=== PATIENT | male | born 1940 | race Caucasian/White ===

== ENCOUNTER → 2023-08-29 15:05 | Outpatient (REF) | payer OTHER, SELFPAY | LOC: HWRAD 15:05 | PROVIDERS: ATTENDING PHYSICIAN Internal Medicine Hematology & Oncology; FAMILY PHYSICIAN Family Medicine | DX: R91.1 Solitary pulmonary nodule (principal); C34.12 Malignant neoplasm of upper lobe, left bronchus or lung; C34.02 Malignant neoplasm of left main bronchus; D70.1 Agranulocytosis secondary to cancer chemotherapy; Z51.11 Encounter for antineoplastic chemotherapy; E86.0 Dehydration | CPT/HCPCS: 71260; Q9967 ==

== ENCOUNTER 2023-09-22 22:43 | Inpatient (IN) | payer OTHER, SELFPAY ==
[2023-09-22] VITALS (11 sets, daily range): BP systolic 87–159; BP diastolic 56–120; BMI 30.2; BMI 29.6
[2023-09-22 17:18] LABS: % Basophils 0.3 % (0-2); % Immature Granulocytes 0.6 % (0-0.5); % Lymphocytes 8.4 % (20.5-51.1); % Monocytes 9.7 % (1.7-9.3); Absolute Immature Granulocytes 0.1 10^3/uL (0-0.05); Absolute Monocytes 1.2 10^3/uL (0.1-0.6); Hematocrit 39.5 % (39.0-52.0); Hemoglobin 14.6 g/dL (13.0-18.0); Mean Corpuscular Hgb 33.3 pg (27.0-31.0); Mean Corpuscular Volume 90.2 fL (80.0-94.0); Mean Platelet Volume 8.7 fL (7.4-10.4); Nucleated Red Blood Cells % 0 % (-); Platelet Count 399 10^3/uL (130-400); Red Blood Cell Count 4.38 10^6/uL (4.70-6.10); Red Cell Dist. Width 12.4 % (11.5-14.5); White Blood Cell Count 12.3 10^3/uL (4.8-10.8)
[2023-09-22 17:32] LABS: ALT (SGPT) 17 U/L (0-50); AST (SGOT) 27 U/L (17-59); Albumin 4.7 g/dl (3.5-5.0); Alkaline Phosphatase 134 U/L (38-126); Blood Urea Nitrogen 13 mg/dl (9-20); Calcium 9.7 mg/dl (8.4-10.2); Carbon Dioxide 22 mmol/L (22-30); Chloride 94 mmol/L (98-107); Estimated Creatinine Clearance 66 ml/min; Glucose 168 mg/dl (70-99); Potassium 4.1 mmol/L (3.5-5.1); Sodium 129 mmol/L (135-145); Total Bilirubin 0.7 mg/dl (0.2-1.3); Total Protein 7.9 g/dl (6.3-8.2); eGFR > 60.00
--- NOTE | 2023-09-22 19:00 | EDRN ---
Report received, introduced myself to patient who has family at bedside complaining of pain, aware waiting for provider who will be in shortly
[2023-09-22] MEDS: ZOFRAN 4 MG IV (19:16)
[2023-09-22] MEDS: DILAUDID 0.25 MG IV (19:16)
--- NOTE | 2023-09-22 20:31 | ED.GENMED ---
History of Present Illness
General
Chief Complaint: Breathing Problem
Source: patient
Exam Limitations: none
Time Seen by Provider: 09/22/23 17:19
Nursing documentation reviewed up to this point in time: agreed with
History of Present Illness
History of Present Illness:
Patient to ED wt complaint of worsening SOB. History of COPD. States 4 days ago his breathing began to worsen. Today he developed right sciatica and states he has not been able to get comfortable between his worsening SOB and sciatica. Brought
to ED by family for eval. Denies fever/chills. Chronic cough, denies changes.
Past History
Past History
ED Past Medical History: Cancer (Lung), HTN, PA and Other (Unbilical hernia)
ED Past Surgical History: Cardiac (Stents x 2) and Other (Hernia surgery, Left lobectomy)
Social History
Tobacco: Smoker
Alcohol: None
Drug: None
Personal:
Living: with family
Review of Systems
Review of Systems
Allergies reviewed?: Yes
All Other Systems: ROS reviewed and negative except as documented in HPI and ROS
Constitutional: Reports fatigue and sleep disturbance
EENT: Reports no symptoms
Respiratory: Reports cough and trouble breathing
Cardiac: Reports no symptoms
ABD/GI: Reports other (poor appetite.)
: Reports no symptoms
Musculoskeletal: Reports back pain (Right sciatica)
Skin: Reports no symptoms
Neurological: Reports weakness
Psychiatric: Reports no symptoms
Phy Exam
General Physical Exam
General Presentation: mild distress
General age: appears stated age
General Skin: warm and dry
General Habitus: normal
General Mental: alert
Cardiovascular Exam
Cardiovascular Exam: tachycardia
Pulmonary Exam
Pulmonary Exam: chest non tender and decreased breath sounds
Oxygen Status: oxygen 2 liters via NC (94%)
Cough: coarse cough
Gastrointestinal Exam
Gastrointestinal Exam: normal bowel sounds, non tender and soft
Musculoskeletal Exam
Musculoskeletal Exam: neuro vasc intact and other (Right low back and buttocks pain, radiating to right thigh. No weakness in extremities)
Skin Exam
Skin Exam: normal color, warm/dry and no rash
Psychiatric Exam
Psychiatric Exam: normal mood/affect
Scores
Heart Failure Risk
Heart Failure Risk Score: Not Applicable
Course
Orders/Labs/Results
Orders:
Orders
09/22/23 17:07
EKG [Electrocardiogram (*1)] Urgent
Reason for Study: Shortness of Breath
EKG- Treatment ONCE
09/22/23 17:12
Complete Blood Count/With Diff Urgent
Comprehensive Metabolic Panel Urgent
09/22/23 17:20
CR Chest - 2 Views Urgent
Comment:
Reason For Exam: cough SOB
09/22/23 19:07
HYDROmorphone [Dilaudid] 0.25 mg IV NOW STA
Ondansetron Injectable [Zofran] 4 mg IV NOW STA
09/22/23 20:45
0.9% Sodium Chloride 500 ml [Nss] 500 ml IV BOLUS
09/22/23 21:25
Dexamethasone Sod Phosphate [Decadron] 10 mg IV NOW STA
09/22/23 22:17
HYDROmorphone [Dilaudid] 0.5 mg IV NOW STA
HYDROmorphone [Dilaudid] 0.5 mg IV Q4HPRN PRN
HYDROmorphone [Dilaudid] 1 mg IV Q4HPRN PRN
Metaxalone [Skelaxin] 800 mg PO NOW STA
09/22/23 22:22
Admit/Transfer Patient As Directed
Co-Sign Provider:
Level of Care: Inpatient admission
Assign to:: Medical/Surgical
Physician / Group: gina martinez
Diagnosis: acute right sided sciatica
Reason for Hospitalization: acute right sided sciatica
Expected length of stay greater than two midnights?: Yes
ELOS- Estimated Length of Stay in days: 3
I certify the patient meets the requirements for IP care: Yes
Code Status As Directed
Resuscitation Status: Full Code
09/23/23 08:00
Metaxalone [Skelaxin] 800 mg PO TID
Abnormal Lab Results
09/22/23
17:12
WBC 12.3 H 10^3/uL
(4.8-10.8)
RBC 4.38 L 10^6/uL
(4.70-6.10)
MCH 33.3 H pg
(27.0-31.0)
Abs Immat Gran (auto) 0.1 H 10^3/uL
(0-0.05)
Absolute Neuts (auto) 10.0 H 10^3/uL
(1.4-6.5)
Absolute Lymphs (auto) 1.0 L 10^3/uL
(1.2-3.4)
Absolute Monos (auto) 1.2 H 10^3/uL
(0.1-0.6)
Immature Gran % 0.6 H %
(0-0.5)
Neutrophils % 81.0 H %
(42.2-75.2)
Lymphocytes % 8.4 L %
(20.5-51.1)
Monocytes % 9.7 H %
(1.7-9.3)
Sodium 129 L mmol/L
(135-145)
Chloride 94 L mmol/L
(98-107)
Glucose 168 H mg/dl
(70-99)
Alkaline Phosphatase 134 H U/L
(38-126)
09/22/23 17:12
09/22/23 17:12
Vital Signs
Initial and Last Documented VS:
Initial Vital Signs
Pulse Resp BP
116 17 132/94
09/22/23 17:04 09/22/23 17:04 09/22/23 17:04
Last Documented Vital Signs
Temp Pulse Resp BP Pulse Ox
97.9 F 117 19 87/56 99
09/22/23 20:45 09/22/23 22:15 09/22/23 22:15 09/22/23 22:01 09/22/23 22:15
*Radiology
Radiology exam reviewed: radiology read reviewed
*Pulse Oximetry
Patient hypoxic: yes
Comment: 88% RA
*Critical Care Note
Total Time (30-74mins, 75-104mins- exclusive of procedures): Not Applicable
Update Note
Update Note:
Patient to ED wtih complaint of difficulty breating, right low back pain with radiation to thigh. Breathing complaint started 4 days ago and continues to worsen. History of COPD. No home 02. Pulse ox 88% RA in dept. Placed o 2LNC, maintaining at
94%. Will admit for exacerbation of COPD. Dilaudid IV given for back/sciatic pain with relief.
ED Attending Note
-
Portions of this chart may have been created with voice recognition software.� Occasional wrong word or��sound alike� substitutions may have occurred due to the inherent limitations of voice recognition software.
Discharge Plan
Departure
Patient Disposition: Admit
Date of Disposition: 09/22/23
Time of Disposition: 21:35
Presentation/result/management discussed w/ accepting MD/DO: Hospitalist
Patient with high blood pressure during this ER visit?: Yes
Condition: Fair
Covid-19: Not Applicable
Discharge Problem:
COPD exacerbation
Interventions
Interventions:
*Risk Screen - Suicide Last Done: 09/22/23 17:09
*General Assessment Last Done: 09/22/23 17:09
*Neglect/Abuse Screening Last Done: 09/22/23 17:09
ED- Fall Risk Assessment Last Done: 09/22/23 19:00
*ED COVID-19 Vaccine History Last Done: 09/22/23 17:09
ED- Cardiac Assessment Last Done: 09/22/23 17:10
ED- Pulmonary Assessment Last Done: 09/22/23 21:00
[2023-09-22] MEDS: NSS 500 IV (20:45)
--- NOTE | 2023-09-22 20:45 | EDRN ---
Patients HR remains still elevated, Tiff [employer] aware, patient to recieved fluids, also patients O2 still around 92-94% on room air, patient placed on 2L NC per [employer] request, will continue to monitor
--- NOTE | 2023-09-22 21:47 | HPS.HSE ---
Family Physician
-
Family Physician: NOT KNOW UNKNOWN - PT DOES
Chief Complaint
-
Right sciatica pain with tachypnea/tachycardia
History of Present Illness
83-year-old male complaining of increased shortness of breath over the past 4 days with underlying COPD. He states approximately 4 weeks ago he started with right-sided sciatica pain radiating to anterior thigh just above the knee. He reports he
was seen in urgent care 4 weeks ago started on 50 mg of prednisone for 7-day course with no improvement. He also reports he has been taking occasional hydrocodone that he had for history of herniated disks with no improvement in pain. He reports
the pain is causing him to breathe faster. He reports a chronic nonproductive cough. He denies fever, chills, headache, chest pain, abdominal pain, nausea, vomiting, diarrhea, urinary symptoms. He has a PET scan scheduled on 09/26/2023 for a 4.3
cm mass in the lingula. He follows with Dr. Yousif at [facility]. He has past medical history of lung cancer status post left lobectomy in 2021 with chemo last dose August 2021, CAD/[place]/cardiac stents times 04/2006,, CVA, HTN, umbilical hernia
repair, active smoker vaping, history of DVT, history of pancreatitis, Hx of syphilis Hx [place], hiatal hernia, gastric ulcer, arthritis, PTSD
Medical History
Past Medical History
Past Medical History: Reports Other
Additional Past Medical History:
lung cancer status post left lobectomy/chemo August 2021
CAD/[place]/cardiac stents x 3 in 2006
CVA
HTN
umbilical hernia repair
active smoker vaping
history of DVT
history of pancreatitis
Hx of syphilis
Hx [place]
hiatal hernia,
gastric ulcer
arthritis
PTSD
Past Surgical History: Reports Other
Additional Past Surgical History:
Left knee replacement 2011
Cardiac stents times 05/2006
Cataract extraction 2004
Lobectomy left lung 2021 secondary to lung cancer
Social History
Tobacco: Vaping
Alcohol: None
Drug: None
Personal:
Living: With Family
Employment: Retired
Family History
Family History: Not pertinent
Allergies / Home Medications
Allergies reflects when Allergies were last updated in [employer]
Home Medications with original date entered in [employer]
Allergy/Medication List:
Allergies
Allergy/AdvReac Type Severity Reaction Status Date / Time
[id number] Reductase AdvReac muscle Verified 04/17/22 12:15
Inhibitor cramps
Home Medications
clopidogrel 75 mg tablet 75 mg PO DAILY Blood clot prevention/tx 05/01/21
metoprolol tartrate 25 mg tablet 25 mg PO BID Blood pressure 05/01/21
ranolazine 500 mg tablet,extended release,12 hr 500 mg PO BID Heart disease/condition 05/01/21
amlodipine 5 mg tablet 5 mg PO DAILY Blood pressure 05/08/21
alirocumab 75 mg/mL subcutaneous pen injector (Praluent Pen) 75 mg SC Q2W 09/22/23
hydrocodone 5 mg-acetaminophen 300 mg tablet 0.5 - 1 tab PO DAILYPRN PRN severe pain 09/22/23
Review of Systems
-
History Source: Patient and Family (Daughter at bedside)
A 12 point ROS was completed and negative except as noted: Yes
Constitutional: Denies Fever, Fatigue or Chills
EENT: Denies Sore Throat or Runny Nose
Respiratory: Reports Cough (Chronic nonproductive) and Trouble Breathing
Cardiac: Denies Chest Pain, Diaphoresis, Palpitations or Syncope
Abdomen/GI: Denies Abdominal Pain, Nausea, Vomiting, Diarrhea, Constipated, Bloody Stools or Black Stools
: Denies Dysuria, Frequency, Flank Pain, Incontinence or Difficulty Voiding
Musculoskeletal: Reports Other (Right-sided sciatica pain with radiation to anterior thigh just above the knee); Denies Joint Pain or Edema
Skin: Denies Itching or Rash
Neurological: Denies Dizzy, Headache or Weakness
Endocrine: Reports No Symptoms
Hematologic/Lymphatic: Reports No Symptoms
Psych: Reports Calm
Physical Exam
Vital Signs
Vital Signs
Temp Pulse Resp BP Pulse Ox
97.9 F 122 14 151/97 93
09/22/23 20:45 09/22/23 20:30 09/22/23 20:00 09/22/23 20:00 09/22/23 20:30
Physical Exam
General: Conversant and Pain; No Fever or Chills
HEENT: NormoCephalic, Anicteric, Moist mucous membranes, PERRLA, Collyer Conjunctivae, No Ptosis, Neck Nontender and Other (Chronic left eye squinting/twitching of face secondary to prior cataract extraction)
Respiratory: Clear; No Wheezes, Rales or Rhonchi
Cardiac: S1/S2, Tachycardia and Other (Right-sided sciatica pain with radiation to anterior thigh just above the knee); No Murmur, Rub, Gallop or Peripheral Edema
Breast: Deferred by me
GI: Soft, Non Tender, Non Distended and Normal Bowel Sounds
Rectal: Deferred by Provider
Genito-urinary: Deferred by me
Musculoskeletal: No Clubbing, No Cyanosis and No Edema
Skin: Warm and Dry; No Rash
Neuro: AO x 3, No Motor Deficits, Nonfocal/grossly intact, Cranial Nerves Intact, No Sensory Deficits and Other (Right-sided sciatica pain with radiation to anterior thigh just above the knee); No Slurred Speech, Facial Droop or Tremors
Psych: Calm
Laboratory Results
-
09/22/23 17:12
09/22/23 17:12
Laboratory Results
Total Bilirubin 0.7 mg/dl (0.2-1.3) 09/22/23 17:12
AST 27 U/L (17-59) 09/22/23 17:12
ALT 17 U/L (0-50) 09/22/23 17:12
Alkaline Phosphatase 134 U/L (38-126) H 09/22/23 17:12
Impression/Plan
-
Impression/plan:
Admit to MedSurg
#Acute right-sided sciatica causing tachycardia/tachypnea from pain
#Hx herniated lumbar disks
Finished recent 50 mg 7-day steroid taper 3 weeks ago with no improvement
Has been taking home Vicodin with no improvement
-MRI lumbar spine
-Dilaudid as needed pain, bowel regimen
-Lidoderm patch
-Skelaxin
-PT/OT/case management eval
#Chronic COPD
No current hypoxia
WBC 12.3 with left shift, afebrile, HR 122
Nicotine use via vaping, prior cigarette smoker
-Vaping use cessation advised
-Patient was given Decadron in ER we will hold further Decadron as do not feel exacerbation of COPD
-DuoNebs as needed
CXR:
1. Severe bilateral upper lobe emphysema
2. Chronic scarring/atelectasis in the lingula surrounding a 4.3 cm chronic cyst or bulla. The cystic lung cancer in the lingula is less likely
3. Severe calcific atherosclerotic plaque in the thoracic aorta
EKG: Sinus tachycardia 109 bpm QTc 441 MS
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
#Hx lung cancer status post LVATS wedge resection lung nodule 2021
Patient has outpatient PET scan scheduled on 09/26/2023
Patient follows with Dr. Nica [facility] [place]
#Hyponatremia
NA 129
#HTN�benign
BP 151/97
#CAD/[place]/cardiac stents x
-Continue metoprolol, Plavix, aspirin, purulent, Ranexa 5 mg twice daily
#HLD
-Continue purulent as outpatient
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
#Hx DVT
#Hx hiatal hernia
#Hx gastric ulcers
#Hx PTSD
#Hx syphilis
#[place] bilaterally
#Arthritis unknown type
DVT prophylaxis
Subcu Lovenox
Full code
[2023-09-22] MEDS: DECADRON 10 MG IV (21:59)
--- NOTE | 2023-09-22 22:16 | EDRN ---
Sarah (daughter): [phone] if anything needed, states if a 'Rupa' calls do not give any information to her
--- NOTE | 2023-09-22 22:53 | W.PN.UPDATE ---
Update Note
Progress Note Update
This is an addendum to the H&P written by Eri Haider on 09/22/2023.� Patient seen examined independently with [employer].
80-year-old male past medical history of left lung cancer status post resection, right-sided sciatica, lumbar disc herniations, CAD, CVA, DVT, hyponatremia presenting here with severe right-sided sciatica and worsening shortness of breath.
Tachycardic on examination likely secondary to pain.
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
Severe right-sided sciatica seems to be the primary problem.� He had recently completed prednisone course 3 weeks ago without improvement.� Check MRI lumbar spine.� Tylenol, lidocaine patch, Skelaxin.� Dilaudid for pain.
Does not clearly appear to be in COPD exacerbation as lungs sound clear and patient is not hypoxic.� Continue DuoNebs.� He is scheduled for PET scan in the near future to evaluate soft tissue mass in the lung.
[2023-09-22] MEDS: SKELAXIN 800 MG PO (22:58)
[2023-09-23] MEDS: DILAUDID 0.5 MG IV ×3 (00:23→21:16)
--- NOTE | 2023-09-23 00:25 | PTCARENOTE ---
Received patient from ED via stretcher. Patient ambulated from stretcher to bed with assistance. Patient complaining of right leg pain radiating to back, PRN dilaudid given as ordered, see MAR. Oriented patient to room and placed call resendiz within
reach.
[2023-09-23] MEDS: TUMS 1 TABLET PO ×2 (06:36→20:22)
[2023-09-23 07:25] LABS: % Basophils 0.1 % (0-2); % Immature Granulocytes 0.7 % (0-0.5); % Lymphocytes 5.9 % (20.5-51.1); % Monocytes 1.3 % (1.7-9.3); Absolute Immature Granulocytes 0.1 10^3/uL (0-0.05); Absolute Lymphocytes 0.5 10^3/uL (1.2-3.4); Absolute Monocytes 0.1 10^3/uL (0.1-0.6); Absolute Neutrophils 8.3 10^3/uL (1.4-6.5); Hematocrit 38.4 % (39.0-52.0); Hemoglobin 13.4 g/dL (13.0-18.0); Mean Corp Hgb Conc. 34.9 g/dL (33.0-37.0); Mean Corpuscular Hgb 33.3 pg (27.0-31.0); Mean Corpuscular Volume 95.5 fL (80.0-94.0); Mean Platelet Volume 9.1 fL (7.4-10.4); Nucleated Red Blood Cells % 0 % (-); Platelet Count 357 10^3/uL (130-400); Red Blood Cell Count 4.02 10^6/uL (4.70-6.10); Red Cell Dist. Width 12.3 % (11.5-14.5); White Blood Cell Count 9.1 10^3/uL (4.8-10.8)
[2023-09-23 07:30] VITALS: BP 150/71
[2023-09-23 08:35] LABS: Blood Urea Nitrogen 17 mg/dl (9-20); Calcium 9.5 mg/dl (8.4-10.2); Carbon Dioxide 22 mmol/L (22-30); Chloride 93 mmol/L (98-107); Estimated Creatinine Clearance 59 ml/min; Glucose 160 mg/dl (70-99); Potassium 4.9 mmol/L (3.5-5.1); Sodium 128 mmol/L (135-145); eGFR > 60.00
[2023-09-23] MEDS: LOPRESSOR 25 MG PO ×2 (08:39→20:22)
[2023-09-23] MEDS: NORVASC 5 MG PO (08:39)
[2023-09-23] MEDS: RANEXA EXTENDED RELEASE 500 MG PO ×2 (08:39→20:21)
[2023-09-23] MEDS: PLAVIX 75 MG PO (08:39)
[2023-09-23 09:29] VITALS: BP 142/93; BP 146/82; PULSE 108; O2SAT 96
[2023-09-23 09:30] VITALS: BP 142/93; BP 146/82; PULSE 108; O2SAT 96
[2023-09-23] MEDS: SKELAXIN 800 MG PO ×3 (10:21→21:16)
--- NOTE | 2023-09-23 10:59 | W.PN.HOSP.TC ---
Today's Communication/Plan
-
mri l spin
urine osm
neph consult
fluid restrict to 1200cc/day
monitor uop
Assessment / Plan
Assessment / Plan
General: No Apparent Distress
HEENT: Normocephalic, Atraumatic and Moist Mucous Membranes. No JVD
Respiratory: CTA B/L, No rales or crackles or wheezes.
Cardiac: Regular Rhythm and S1/S2.
GI: Soft, NT, ND, BS+
Musculoskeletal: No Cyanosis , No Edema
Skin: Dry
Neuro: aao x3
Psych: normal affect
COPD
without evidence of acute bronchospasms, no indication for steroids, continue MDIs. Maintain SpO2 greater than 80 to 92%
Acute right-sided sciatica
seen previously by [facility] spine physicians in the last couple weeks, started on p.o. steroids without improvement. Fortunately without evidence of cauda equina
-MRI of lumbar spine pending at this time.
- - If abnormal or concerning findings then will need to consult spine surgery.
Euvolemic hyponatremia of 128. Nolvia 126 with a calculated serum osm of 271. Known history of lung CA s/p left lobectomy/chemo August 2021. Therefore, cannot rule out SIADH as a potential cause of this hyponatremia. Will preemptively fluid restrict to
1200cc
-Check UOsm
-Consult neph
-Fluid restrict to 1200 cc
Anticipated Discharge: 24 - 48 hours
Subjective/Interval History
-
Date of Service: September 23, 2023
Seen and examined. No new complaints. No acute overnight events.
States that he is feeling better after he received IV Dilaudid pain has completely resolved. Typically will be aspirated once the pain gets to a 7.
States that he has bilateral lower extremity intermittent numbness tingling that has been ongoing since chemotherapy
Denies bowel bladder incontinence
Shortness of breath
Not requiring supplemental oxygen
Objective Data
-
Labs:
Laboratory Results
09/23/23
06:51
WBC 9.1
Hgb 13.4
Hct 38.4 L
Plt Count 357
Sodium 128 L
Potassium 4.9
Chloride 93 L
Carbon Dioxide 22
BUN 17
Creatinine 1.0
Glucose 160 H
Calcium 9.5
Vital Signs:
Vital Signs
Temp Pulse Resp BP Pulse Ox
98.4 F 110 18 150/71 97
09/23/23 07:30 09/23/23 07:30 09/23/23 07:30 09/23/23 07:30 09/23/23 07:30
I&O
09/22/23 09/23/23 09/24/23
06:59 06:59 06:59
Intake Total 480 / 480
Output Total 525 / 525
Balance -45 / -45
Data Reviewed
-
Diagnostic Radiology: Image personally visualized and interpreted and Report Reviewed by me
Labs: Labs Reviewed by me
[2023-09-23] MEDS: DILAUDID 1 MG IV (13:05)
[2023-09-23 15:25] VITALS: BP 129/72
--- NOTE | 2023-09-23 15:33 | W.CON.NEPH ---
Consultation
-
Performing Provider: Jo Nicole
Reason for Consultation: hyponatremia
Medical History
-
Chief Complaint: hyponatremia
History of Present Illness:
Mr. Neal is an 83YOM with PMH of COPD, lung cancer Status post left lobectomy/chemo in August 2021, coronary artery disease (stents in 2006), CVA, hypertension, smoking, DVT, pancreatitis, arthritis, PTSD who presents to the hospital for worsening
SOB.
He is on metoprolol tartrate and amlodipine for his blood pressure.He is on Plavix for his stents.
He had some sciatica type pain, saw urgent care was started on steroids with minimal improvement. He also takes hydrocodone with minimal improvement in pain. He feels that the pain is causing him to breathe faster. He also has a nonproductive cough.
He denies fevers chills nausea vomiting diarrhea or urinary symptoms.
Of note, he does have a pet scan scheduled for September 25 for a mass on his ligula. He follows with Dr. Yousif as his oncologist.
Past Medical History
lung cancer status post left lobectomy/chemo August 2021
CAD/[place]/cardiac stents x 3 in 2006
CVA
HTN
umbilical hernia repair
active smoker vaping
history of DVT
history of pancreatitis
Hx of syphilis
Hx PICAYUNE
hiatal hernia
gastric ulcer
arthritis
PTSD
Past Medical History: Other
Past Surgical History: Other (Left knee replacement 2012 Cardiac stents times 05/2006 Cataract extraction 2004 Lobectomy left lung 2021 secondary to lung cancer)
Social History
Tobacco: Vaping
Alcohol: None
Drug: None
Personal:
Living: With Family
Employment: Retired
Family History
Family History: Not Pertinent
Allergies / Home Medications
Allergy/AdvReac Type Severity Reaction Status Date / Time
Iepxsvv-[id number]-FsO Reductase Allergy muscle Verified 09/22/23 22:46
Inhibitor cramps
�Medication �Instructions �Recorded �Confirmed �Type
clopidogrel 75 mg tablet 75 mg PO DAILY Blood clot 05/01/21 09/22/23 History
prevention/tx
metoprolol tartrate 25 mg tablet 25 mg PO BID Blood pressure 05/01/21 09/22/23 History
ranolazine 500 mg tablet,extended 500 mg PO BID Heart 05/01/21 09/22/23 History
release,12 hr disease/condition
amlodipine 5 mg tablet 5 mg PO DAILY Blood pressure 05/08/21 09/22/23 History
alirocumab 75 mg/mL subcutaneous 75 mg SC Q2W High Cholesterol 09/22/23 09/22/23 History
pen injector (Praluent Pen)
hydrocodone 5 mg-acetaminophen 300 0.5 - 1 tab PO DAILYPRN PRN severe 09/22/23 09/22/23 History
mg tablet pain
Review of Systems
-
History Source: Patient
All other systems: Negative unless noted
Respiratory: Cough and Trouble Breathing
Musculoskeletal: Muscle Pain
Physical Exam
Vital Signs
Vital Signs
Temp Pulse Resp BP Pulse Ox
98.4 F 110 18 150/71 97
09/23/23 07:30 09/23/23 07:30 09/23/23 07:30 09/23/23 07:30 09/23/23 07:30
Lab Results
WBC 9.1 10^3/uL (4.8-10.8) 09/23/23 06:51
RBC 4.02 10^6/uL (4.70-6.10) L 09/23/23 06:51
Hgb 13.4 g/dL (13.0-18.0) 09/23/23 06:51
Hct 38.4 % (39.0-52.0) L 09/23/23 06:51
Plt Count 357 10^3/uL (130-400) 09/23/23 06:51
Sodium 128 mmol/L (135-145) L 09/23/23 06:51
Potassium 4.9 mmol/L (3.5-5.1) 09/23/23 06:51
Chloride 93 mmol/L (98-107) L 09/23/23 06:51
Carbon Dioxide 22 mmol/L (22-30) 09/23/23 06:51
BUN 17 mg/dl (9-20) 09/23/23 06:51
Creatinine 1.0 mg/dL (0.7-1.3) 09/23/23 06:51
eGFR > 60.00 09/23/23 06:51
Glucose 160 mg/dl (70-99) H 09/23/23 06:51
Calcium 9.5 mg/dl (8.4-10.2) 09/23/23 06:51
Albumin 4.7 g/dl (3.5-5.0) 09/22/23 17:12
Physical Exam
General: AOx3, No Distress and Nontoxic
HEENT: PERRL, EOMI, Anicteric, Conjunctivae Clear, Ear/Nose Intact, Oropharynx Clear/Moist, Dentition Intact, Facial Symmetry, Neck Supple, Trachea Midline, No JVD, No Thyromegaly and Other (PICAYUNE)
Respiratory: Wheezes, Normal Excursion and Nonlabored Respirations
Cardiac: S1/S2, Regular Rate/Rhythm and No Edema
Breast: N/A
Abdomen: Soft, Nontender, Nondistended, Normal Bowel Sounds and No Hepatosplenomegaly
Rectal: Deferred by Provider
Genito-urinary: No Costovertebral Tender
Musculoskeletal: No Clubbing, No Cyanosis and No Edema
Skin: No Rash, Warm, Dry, No Clubbing, No Cyanosis, Normal Turgor and No Bruising
Neuro: Nonfocal/Grossly Intact
Hematologic/Lymphatic: No Cervical Lymphadenopathy
Psych: Mood/afflect pleasant, Insight/judgement good and Appropriate
Data Reviewed
-
Radiology: Image Personally Visualized and interpreted (plaque noted in the thoracic aorta. scarring noted in the lungs. bilateral emphysema)
MRI: Report Reviewed by me
Labs: Labs Reviewed by me, Discussed with Physician and Discussed with Patient
Old Records: Reviewed
Assessment/Plan
-
Assessment/Plan:
hyponatremia
COPD
Sciatica
Lingula mass
lung cancer hx s/p LVATS resection
HTN
CAD
Plan:
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
- Uosm 420, urine sodium 126 --> consistent with SIADH
- check TSH and cortisol
- samsca 7.5mg today
--- NOTE | 2023-09-23 17:11 | CM ---
Chart reviewed and patient visited at bedside. He lives in a one floor home with 4 entry steps, reporting (I) amb and adl's prior to back pain/sciatica. He has a walker and a shower chair at home since his back pain started.
Td has 2 sisters who recently moved in with him and help with cooking and laundry.
CM will follow for discharge planning needs if identified with need for in-home services or SNF (less likely).
PCP: Glory Baires
Pharmacy: [facility] on [facility] in [place]
[2023-09-23 17:19] LABS: TSH 1.34 uIU/ml (0.47-4.68)
[2023-09-23] MEDS: SAMSCA 7.5 MG PO (17:31)
[2023-09-23] MEDS: LOVENOX 40 MG SC (17:31)
[2023-09-23 23:49] VITALS: BP 110/56
[2023-09-24 07:03] LABS: % Basophils 0.1 % (0-2); % Immature Granulocytes 0.7 % (0-0.5); % Lymphocytes 5.9 % (20.5-51.1); % Monocytes 7.8 % (1.7-9.3); % Neutrophils 85.5 % (42.2-75.2); Absolute Immature Granulocytes 0.1 10^3/uL (0-0.05); Absolute Lymphocytes 0.9 10^3/uL (1.2-3.4); Absolute Monocytes 1.2 10^3/uL (0.1-0.6); Absolute Neutrophils 12.8 10^3/uL (1.4-6.5); Hemoglobin 11.5 g/dL (13.0-18.0); Mean Corp Hgb Conc. 34.8 g/dL (33.0-37.0); Mean Corpuscular Hgb 33.1 pg (27.0-31.0); Mean Corpuscular Volume 95.1 fL (80.0-94.0); Nucleated Red Blood Cells % 0 % (-); Platelet Count 303 10^3/uL (130-400); Red Blood Cell Count 3.47 10^6/uL (4.70-6.10); Red Cell Dist. Width 12.5 % (11.5-14.5)
[2023-09-24 07:34] LABS: Blood Urea Nitrogen 27 mg/dl (9-20); Calcium 9.5 mg/dl (8.4-10.2); Carbon Dioxide 28 mmol/L (22-30); Chloride 96 mmol/L (98-107); Estimated Creatinine Clearance 53 ml/min; Glucose 126 mg/dl (70-99); Potassium 5.2 mmol/L (3.5-5.1); Sodium 130 mmol/L (135-145); eGFR > 60.00
[2023-09-24 07:40] VITALS: BP 113/56
[2023-09-24 08:04] LABS: Cortisol, Random 1.3 ug/dl
[2023-09-24] MEDS: RANEXA EXTENDED RELEASE 500 MG PO ×2 (08:25→21:49)
[2023-09-24] MEDS: SKELAXIN 800 MG PO ×3 (08:25→21:49)
[2023-09-24] MEDS: LOPRESSOR 25 MG PO (08:25)
[2023-09-24] MEDS: PLAVIX 75 MG PO (08:26)
[2023-09-24] MEDS: NORVASC 5 MG PO (08:26)
--- NOTE | 2023-09-24 10:15 | CON.ORTHO ---
Consultation
-
Date/Time Consultation Requested: 09/24/2023; time unknown
Date/Time Consultation Performed: 09/24/2023; 1000
Requesting Provider: Domenico Lopez
Performing Provider: Rika Gomez PA-C for Dr. Krzysztof Aquino
Reason for Consultation: Low back pain; lumbar radiculopathy
Consultation - Orthopedics
History
Mr. Neal is an 83 year old male with PMH of lung cancer status post resection, lumbar disc herniations, CAD, CVA, DVT, hyponatremia. He is seen today for evaluation of low back pain and right sided lumbar radiculopathy. He reports symptoms
ongoing for the last month or so, and denies any injury or inciting event. He was seen initially at urgent care where he reports he was prescribed a steroid. He then presented to [facility] and an MRI of his lumbar spine was ordered. He
reports chronic low back pain, and has utilized [place] prn for symptom management. He endorses pain that radiates down his anterior thigh and stops at his knee. He endorses baseline neuropathy following chemotherapy, but denies any new
numbness/tingling. He denies bowel or bladder incontinence or saddle anesthesia.
Allergies / Home Medications
Allergy/AdvReac Type Severity Reaction Status Date / Time
Upaplxu-TLN-HcM Reductase Allergy muscle Verified 09/22/23 22:46
Inhibitor cramps
�Medication �Instructions �Recorded
clopidogrel 75 mg tablet 75 mg PO DAILY Blood clot 05/01/21
prevention/tx
metoprolol tartrate 25 mg tablet 25 mg PO BID Blood pressure 05/01/21
ranolazine 500 mg tablet,extended 500 mg PO BID Heart 05/01/21
release,12 hr disease/condition
amlodipine 5 mg tablet 5 mg PO DAILY Blood pressure 05/08/21
alirocumab 75 mg/mL subcutaneous 75 mg SC Q2W High Cholesterol 09/22/23
pen injector (Praluent Pen)
hydrocodone 5 mg-acetaminophen 300 0.5 - 1 tab PO DAILYPRN PRN severe 09/22/23
mg tablet pain
Vital Signs / Lab Results
Temp Pulse Resp BP Pulse Ox
97.7 F 77 14 113/56 98
09/24/23 07:40 09/24/23 08:25 09/24/23 07:40 09/24/23 08:25 09/24/23 08:20
09/24/23 06:51
09/24/23 06:51
MRI Lumbar Spine Findings:
At T12-L1, mild degenerative disc disease. On sagittal images, mild broad-based posterior disc bulge minimally compressing the anterior thecal sac.
At L1-2, mild posterior disc bulge, slightly asymmetric, greater in the left foraminal region. No significant overall central canal stenosis or lateral recess stenosis. Mild left foraminal narrowing with no evidence for compression of the exiting
nerve root. Minimal right foraminal narrowing.
At L2-3, mild degenerative disc disease including anterior spondylosis. Mild broad-based posterior disc bulge, asymmetric, slightly greater in the left subarticular and foraminal region. Mild bilateral facet degenerative change. Compression of the
thecal sac, greatest left anteriorly. Mild left lateral recess stenosis. No significant right lateral recess stenosis. No significant overall central canal stenosis. Mild left foraminal narrowing with no evidence for compression of the exiting nerve
root. Minimal right foraminal narrowing.
At L3-4, moderate degenerative disc disease, slightly greater toward the right side of the disc space. Prominent bilateral lateral spondylosis. Focal right lateral degenerative marrow endplate signal change, Modic type I. Mild to moderate
broad-based posterior disc bulge, greater in the foraminal regions bilaterally. Mild to moderate bilateral facet degenerative change. Trefoil compression of the thecal sac results in mild bilateral lateral recess stenosis. No significant overall
central canal stenosis. The left neural foramen is mildly to moderately narrowed and slightly compresses the anterior and inferior margin of the exiting nerve root. The right foramen is moderately to severely narrowed from disc bulge and facet
degenerative change, with significant compression of the exiting right L3 nerve root.
At L4-5, moderate degenerative disc disease including mild degenerative marrow endplate signal change, Modic type I. Bilateral lateral spondylosis and moderate anterior spondylosis. Mild broad-based posterior disc bulge. Slight extension of disc
material superior to the disc space in the central through right subarticular region. Mild bilateral facet degenerative change. There is slight compression of the thecal sac, resulting in mild bilateral recess stenosis. No significant overall
central canal stenosis. The left foramen is mildly to moderately narrowed, but probably not significantly compressing the exiting nerve root. The right foramen appears mildly to moderately narrowed and may slightly impinge upon the exiting nerve
root.
At L5-S1, minimal degenerative disc disease. Minimal posterior disc bulge with mild to moderate bilateral facet degenerative change. There is no significant compression of the thecal sac or the S1 nerve root origins. There is no significant overall
central canal stenosis. The left foramen is mildly to moderately narrowed, but likely does not compress the exiting nerve root. The right foramen is mildly narrowed and does not appear to compress the exiting nerve root.
There is diffuse atherosclerotic disease of the abdominal aorta. 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 The abdominal aorta has maximum dimensions of 2.9 cm transverse by 2.5 cm AP. There is slight dilation of the
visualized proximal right common iliac artery, which has short axis diameter 1.7 cm.
Note is made of increased STIR signal within the right posterior paraspinal soft tissues, extending inferiorly from the L3-4 and L4-5 levels, and also demonstrating postcontrast enhancement. Findings would suggest denervation edema and enhancement
from impingement on nerve supplying the right paraspinal musculature.
Physical Exam:
General: pleasant male in NAD, AAOx3
Head: atraumatic, normocephalic
Eyes: sclera anicteric
Ears: normal hearing
Heart: no lower extremity edema
Lungs: no audible wheezing
Lumbar spine: No erythema, ecchymosis or lesions. No tenderness to palpation along the lumbar spinous processes, paraspinal muscles, SI joints or sciatic notch. Lumber spine ROM limited secondary to stiffness and discomfort. Maintained (5/5)
strength throughout. Sensation intact to light touch throughout. Capillary refill <2 seconds.
Assessment / Plan
Degenerative disc disease with foraminal narrowing and L3 nerve root compression.
--Td's symptoms are consistent with L3-4 lumbar radiculopathy. Thankfully, he is neurovascular intact throughout. Lumbar spine MRI reviewed, and no surgical intervention is warranted at this time. Would recommend IR consult for injection. Order
placed. Continue with pain control per primary. Would recommend PT/OT while patient admitted. Please reach out with any additional orthopedic questions or concerns.
--- NOTE | 2023-09-24 11:06 | W.PN.NEPH.PH ---
Today's Communication / Plan
-
samsca
Assessment/Plan
-
Assessment/Plan:
hyponatremia
COPD
Sciatica
Lingula mass
lung cancer hx s/p LVATS resection
HTN
CAD
Plan:
samsca again
cosyntropin stim test
follow BMP
watch K
-
-
Date of Service: September 24, 2023
CC / HPI / ROS
-
Chief Complaint:
hyponatremia
History of Present Illness:
Na up to 130 with samsca
K up to 5.2
BP stable
cortisol low 1.3
pain controlled
Review of Systems:
no CP/SOB
Labs
-
Labs:
WBC 15.0 10^3/uL (4.8-10.8) H 09/24/23 06:51
RBC 3.47 10^6/uL (4.70-6.10) L 09/24/23 06:51
Hgb 11.5 g/dL (13.0-18.0) L 09/24/23 06:51
Hct 33.0 % (39.0-52.0) L 09/24/23 06:51
Plt Count 303 10^3/uL (130-400) 09/24/23 06:51
Sodium 130 mmol/L (135-145) L 09/24/23 06:51
Potassium 5.2 mmol/L (3.5-5.1) H 09/24/23 06:51
Chloride 96 mmol/L (98-107) L 09/24/23 06:51
Carbon Dioxide 28 mmol/L (22-30) 09/24/23 06:51
BUN 27 mg/dl (9-20) H 09/24/23 06:51
Creatinine 1.1 mg/dL (0.7-1.3) 09/24/23 06:51
eGFR > 60.00 09/24/23 06:51
Glucose 126 mg/dl (70-99) H 09/24/23 06:51
Calcium 9.5 mg/dl (8.4-10.2) 09/24/23 06:51
Albumin 4.7 g/dl (3.5-5.0) 09/22/23 17:12
Physical Exam
-
Vital Signs:
Vital Signs
Temp Pulse Resp BP Pulse Ox
97.7 F 77 14 113/56 98
09/24/23 07:40 09/24/23 08:25 09/24/23 07:40 09/24/23 08:25 09/24/23 08:20
Cardiovascular:: Regular rate and rhythm
Respiratory:: Bilateral: CTA
Lung Excursion:: Normal
Abdomen:: Nontender and Soft
Bowel Sounds:: Normal
Extremity Edema:: None: Bilateral:
[2023-09-24] MEDS: SAMSCA 7.5 MG PO (11:59)
[2023-09-24] MEDS: DILAUDID 0.5 MG IV ×2 (12:06→23:58)
[2023-09-24 14:08] LABS: INR 1.08
[2023-09-24 14:39] VITALS: BP 132/75
--- NOTE | 2023-09-24 14:40 | W.PN.HOSP.TC ---
Today's Communication/Plan
-
follow up bmp at 1800, if K >5.5 then start lokelma and get ekg as he may need temporzing agents
follow up on ortho - spine recs
Assessment / Plan
Assessment / Plan
General: No Apparent Distress
HEENT: Normocephalic, Atraumatic and Moist Mucous Membranes. No JVD
Respiratory: CTA B/L, No rales or crackles or wheezes.
Cardiac: Regular Rhythm and S1/S2.
GI: Soft, NT, ND, BS+
Musculoskeletal: No Cyanosis , No Edema
Skin: Dry
Neuro: aao x3
Psych: normal affect
COPD
without evidence of acute bronchospasms, no indication for steroids, continue MDIs. Maintain SpO2 greater than 80 to 92%
Acute right-sided sciatica
seen previously by [facility] spine physicians in the last couple weeks, started on p.o. steroids without improvement. Fortunately without evidence of cauda equina
-MRI showing foraminal narrowing at l3-l4
- - Ispine surgery consulted
Euvolemic hyponatremia of 128. Nolvia 126 with a calculated serum osm of 271. Known history of lung CA s/p left lobectomy/chemo August 2021. Therefore, cannot rule out SIADH as a potential cause of this hyponatremia. Will preemptively fluid restrict to
1200cc
-Consult neph
- - Ordered tolvapatn for 09/22 and 09/23
- - low AM [place], neph ordered stim test
-Fluid restrict to 1200 cc
HyperK
- could be related to the tolvaptan
- - start low k diet
- - repeat bmp at 1800
- - consider lokelma
Anticipated Discharge: 24 - 48 hours
Subjective/Interval History
-
Date of Service: September 24, 2023
states he said that he is again in pain from the sciatica. Pain meds take it away completed. Up to a 7 when pain meds wear off. At home was taking 1tab of hydroxycodone/acetminophen which helps with the pain for about 4hours but make him light
headed.
Additionally states that he was hallucinating yesterday/last night. 2 people the walking on the roof and staring at him eventually by the time he woke up this morning.
Spoke with his daughter still hallucinating a little a bit. She would like him to make his PET/CT appointment on friday.
Objective Data
-
Labs:
Laboratory Results
09/24/23 09/24/23
06:51 13:35
WBC 15.0 H
Hgb 11.5 L
Hct 33.0 L
Plt Count 303
PT 14.0
INR 1.08
Sodium 130 L
Potassium 5.2 H
Chloride 96 L
Carbon Dioxide 28
BUN 27 H
Creatinine 1.1
Glucose 126 H
Calcium 9.5
Vital Signs:
Vital Signs
Temp Pulse Resp BP Pulse Ox
97.3 F 74 16 132/75 95
09/24/23 14:39 09/24/23 14:39 09/24/23 14:39 09/24/23 14:39 09/24/23 14:39
I&O
09/23/23 09/24/23 09/25/23
06:59 06:59 06:59
Intake Total 480 / 480 960 / 960
Output Total 525 / 525
Balance -45 / -45 960 / 960
--- NOTE | 2023-09-24 16:00 | PTCARENOTE ---
PCT Rudy found pt. vaping, pt. said it is his 'security blanket' and wink at PCT. Pt. educated on hospital policy regarding vaping in the building. Nursing stock preparation supervisor made aware and security called. Security came and took pt. vape, it is now locked
in the security office until pt. is discharged.
[2023-09-24] MEDS: LOVENOX 40 MG SC (16:26)
[2023-09-24 16:35] LABS: Osmolality Urine 543 mOsm/kg (300-900)
--- NOTE | 2023-09-24 17:46 | CM ---
CM met with Td today to discuss concerns about a PET scan that he has had scheduled for Friday. Support provided and advised Td that I would look into the situation to determine if there can be a resolution.
STEPHANIE advised that PET scan area is in the [place] and does not have RN onsite, so it is a safety issue for a hospitalized patient to be sent to PET scan. STEPHANIE returned to room to discuss this with Td. He is very scared that his cancer is
getting worse, advised he had hallucinations in the past when his cancer was getting worse, and has had hallucinations again at night while in the hospital.
Support provided.
TT to attending to raise awareness of test scheduled for Friday, and if medically stable for discharge on 09/25/2023 would be able to go to PET scan.
Plan: Discharge to home with no anticipated needs.
[2023-09-24 19:27] LABS: Blood Urea Nitrogen 34 mg/dl (9-20); Calcium 9.5 mg/dl (8.4-10.2); Carbon Dioxide 28 mmol/L (22-30); Chloride 93 mmol/L (98-107); Estimated Creatinine Clearance 45 ml/min; Glucose 123 mg/dl (70-99); Potassium 4.4 mmol/L (3.5-5.1); Sodium 131 mmol/L (135-145); eGFR 55.19
[2023-09-24 21:45] VITALS: BP 105/54
[2023-09-24] MEDS: LOPRESSOR PO (22:00)
[2023-09-24] MEDS: LOPRESSOR 12.5 MG PO (22:07)
[2023-09-24 23:22] VITALS: BP 134/71
[2023-09-25] MEDS: DILAUDID 0.5 MG IV ×4 (06:27→23:42)
[2023-09-25 07:17] VITALS: BP 129/70
[2023-09-25] MEDS: PLAVIX 75 MG PO (07:46)
[2023-09-25] MEDS: RANEXA EXTENDED RELEASE 500 MG PO ×2 (07:46→21:52)
[2023-09-25] MEDS: NORVASC 5 MG PO (07:46)
[2023-09-25] MEDS: SKELAXIN 800 MG PO ×3 (07:46→21:52)
[2023-09-25] MEDS: LOPRESSOR PO (07:55)
[2023-09-25 08:14] LABS: % Basophils 0.1 % (0-2); % Immature Granulocytes 0.7 % (0-0.5); % Lymphocytes 14.4 % (20.5-51.1); % Monocytes 9.3 % (1.7-9.3); % Neutrophils 75.5 % (42.2-75.2); Absolute Immature Granulocytes 0.1 10^3/uL (0-0.05); Absolute Lymphocytes 2.1 10^3/uL (1.2-3.4); Absolute Monocytes 1.3 10^3/uL (0.1-0.6); Absolute Neutrophils 10.8 10^3/uL (1.4-6.5); Hematocrit 37.8 % (39.0-52.0); Hemoglobin 12.7 g/dL (13.0-18.0); Mean Corp Hgb Conc. 33.6 g/dL (33.0-37.0); Mean Corpuscular Hgb 32.4 pg (27.0-31.0); Mean Corpuscular Volume 96.4 fL (80.0-94.0); Mean Platelet Volume 9.1 fL (7.4-10.4); Nucleated Red Blood Cells % 0 % (-); Platelet Count 372 10^3/uL (130-400); Red Blood Cell Count 3.92 10^6/uL (4.70-6.10); Red Cell Dist. Width 12.8 % (11.5-14.5); White Blood Cell Count 14.3 10^3/uL (4.8-10.8)
[2023-09-25 08:27] LABS: Blood Urea Nitrogen 28 mg/dl (9-20); Calcium 9.5 mg/dl (8.4-10.2); Carbon Dioxide 28 mmol/L (22-30); Chloride 95 mmol/L (98-107); Estimated Creatinine Clearance 49 ml/min; Glucose 144 mg/dl (70-99); Potassium 3.7 mmol/L (3.5-5.1); Sodium 135 mmol/L (135-145); eGFR > 60.00
[2023-09-25] MEDS: CORTROSYN 0.25 MG IV (08:34)
[2023-09-25] MEDS: NSS (PRESERVATIVE FREE) 1 ML IV (08:35)
[2023-09-25 08:57] LABS: ACTH Stim Cortisol 0 Min 1.6 ug/dl
[2023-09-25 10:07] LABS: ACTH Stim Cortisol 30 Min 11.5 ug/dl
[2023-09-25 10:34] LABS: ACTH Stim Cortisol 60 Min 14.3 ug/dl
--- NOTE | 2023-09-25 12:07 | W.PN.NEPH.PH ---
Today's Communication / Plan
-
maintain FR
follow bmp while inpatient
Assessment/Plan
-
Assessment/Plan:
hyponatremia
COPD
Sciatica
Lingula mass
lung cancer hx s/p LVATS resection
HTN
CAD
Plan:
samsca was given again last pm with sodium rise to 135
cosyntropin stim test ordered for low cortisol although hemodynamically stable
stim test indicates some adreanl insufficiency maybe related to steroid administration last week, will hold off on hydrocortisone given stable hemodynamics
follow BMP
watch K
maintain FR
may require low dose lasix at dc for SIADH (20mg qod)
-
-
Date of Service: September 25, 2023
CC / HPI / ROS
-
Chief Complaint:
hyponatremia
History of Present Illness:
Na up to 135 with samsca times two
K at 3.7
BP stable
cortisol low 1.3
pain controlled
Review of Systems:
no CP/SOB
Labs
-
Labs:
WBC 14.3 10^3/uL (4.8-10.8) H 09/25/23 08:07
RBC 3.92 10^6/uL (4.70-6.10) L 09/25/23 08:07
Hgb 12.7 g/dL (13.0-18.0) L 09/25/23 08:07
Hct 37.8 % (39.0-52.0) L 09/25/23 08:07
Plt Count 372 10^3/uL (130-400) D 09/25/23 08:07
Sodium 135 mmol/L (135-145) 09/25/23 08:07
Potassium 3.7 mmol/L (3.5-5.1) 09/25/23 08:07
Chloride 95 mmol/L (98-107) L 09/25/23 08:07
Carbon Dioxide 28 mmol/L (22-30) 09/25/23 08:07
BUN 28 mg/dl (9-20) H 09/25/23 08:07
Creatinine 1.2 mg/dL (0.7-1.3) 09/25/23 08:07
eGFR > 60.00 09/25/23 08:07
Glucose 144 mg/dl (70-99) H 09/25/23 08:07
Calcium 9.5 mg/dl (8.4-10.2) 09/25/23 08:07
Albumin 4.7 g/dl (3.5-5.0) 09/22/23 17:12
Physical Exam
-
Vital Signs:
Vital Signs
Temp Pulse Resp BP Pulse Ox
97.7 F 90 18 140/80 95
09/25/23 07:17 09/25/23 07:46 09/25/23 07:17 09/25/23 07:46 09/25/23 10:37
Cardiovascular:: Regular rate and rhythm
Respiratory:: Bilateral: Coarse (decreased breath sounds bilaterally)
Lung Excursion:: Normal
Abdomen:: Nontender and Soft
Bowel Sounds:: Normal
Extremity Edema:: None: Bilateral:
Alaniz Catheter: No
--- NOTE | 2023-09-25 14:53 | W.PN.HOSP.TC ---
Today's Communication/Plan
-
PET/CT tomorrow on 09/25
IR consult for transforaminal radicular injection at L3-L4
Assessment / Plan
Assessment / Plan
General: No Apparent Distress
HEENT: Normocephalic, Atraumatic and Moist Mucous Membranes. No JVD
Respiratory: CTA B/L, No rales or crackles or wheezes.
Cardiac: Regular Rhythm and S1/S2.
GI: Soft, NT, ND, BS+
Musculoskeletal: No Cyanosis , No Edema
Skin: Dry
Neuro: aao x3
Psych: normal affect
COPD
without evidence of acute bronchospasms, no indication for steroids, continue MDIs. Maintain SpO2 greater than 80 to 92%
Acute right-sided sciatica
seen previously by [facility] spine physicians in the last couple weeks, started on p.o. steroids without improvement. Fortunately without evidence of cauda equina
-MRI showing foraminal narrowing at l3-l4
- -Spine surgery evaluated no acute surgical interventions indicated
- -Spine surgery to consult IR for L3-L4 transforaminal injection
Euvolemic hyponatremia of 128. Nolvia 126 with a calculated serum osm of 271. Known history of lung CA s/p left lobectomy/chemo August 2021. Therefore, cannot rule out SIADH as a potential cause of this hyponatremia. Will preemptively fluid restrict to
1200cc
-Consult neph
- - Ordered tolvapatn for 09/22 and 09/23
- - low AM [place], stim test with mild improvement likely related to recent steroid use. I agree with nephrology no indication for hydrocortisone at this time.
-Will discuss with nephrology prior to discharge needs for every other day Lasix 20 mg
HyperK
- could be related to the tolvaptan
- - start low k diet
- - repeat bmp at 1800
- - consider lokelma
Pulmonary mass
Discussed with risk will be taken for PET/CT tomorrow
Anticipated Discharge: Within 24 hours
Subjective/Interval History
-
Date of Service: September 25, 2023
Seen and examined. No new complaints. No acute overnight events per
Objective Data
-
Labs:
Laboratory Results
09/25/23
08:07
WBC 14.3 H
Hgb 12.7 L
Hct 37.8 L
Plt Count 372 D
Sodium 135
Potassium 3.7
Chloride 95 L
Carbon Dioxide 28
BUN 28 H
Creatinine 1.2
Glucose 144 H
Calcium 9.5
Vital Signs:
Vital Signs
Temp Pulse Resp BP Pulse Ox
97.7 F 90 18 140/80 95
09/25/23 07:17 09/25/23 07:46 09/25/23 07:17 09/25/23 07:46 09/25/23 10:37
I&O
09/24/23 09/25/23 09/26/23
06:59 06:59 06:59
Intake Total 960 / 960 720 / 720
Balance 960 / 960 720 / 720
[2023-09-25 15:49] VITALS: BP 119/67
[2023-09-25] MEDS: LOVENOX 40 MG SC (16:58)
[2023-09-25 21:01] VITALS: BP 133/69
[2023-09-25] MEDS: LOPRESSOR 25 MG PO (21:52)
[2023-09-25 23:49] VITALS: BP 108/66
[2023-09-26] MEDS: DILAUDID 0.5 MG IV ×3 (06:18→16:41)
[2023-09-26 08:00] VITALS: BP 115/55
[2023-09-26] MEDS: LOPRESSOR 25 MG PO (08:03)
[2023-09-26] MEDS: SKELAXIN 800 MG PO ×2 (08:03→15:40)
[2023-09-26] MEDS: PLAVIX 75 MG PO (08:04)
[2023-09-26] MEDS: RANEXA EXTENDED RELEASE 500 MG PO (08:04)
[2023-09-26] MEDS: NORVASC 5 MG PO (08:04)
[2023-09-26 08:05] LABS: Blood Urea Nitrogen 22 mg/dl (9-20); Calcium 8.9 mg/dl (8.4-10.2); Carbon Dioxide 32 mmol/L (22-30); Chloride 95 mmol/L (98-107); Estimated Creatinine Clearance 53 ml/min; Glucose 98 mg/dl (70-99); Potassium 3.7 mmol/L (3.5-5.1); Sodium 133 mmol/L (135-145); eGFR > 60.00
--- NOTE | 2023-09-26 09:26 | W.PN.NEPH.PH ---
Today's Communication / Plan
-
Add salt tablets
Assessment/Plan
-
Assessment/Plan:
hyponatremia
COPD
Sciatica
Lingula mass
lung cancer hx s/p LVATS resection
HTN
CAD
Plan:
samsca was given again on 09/23with sodium rise to 135 now at 133
cosyntropin stim test ordered for low cortisol although hemodynamically stable
stim test indicates some adrenal insufficiency maybe related to steroid administration last week, will hold off on hydrocortisone given stable hemodynamics
follow BMP
maintain FR
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
-
-
Date of Service: September 26, 2023
CC / HPI / ROS
-
Chief Complaint:
hyponatremia
History of Present Illness:
Na up to 133 with samsca times two last given on 09/24/2023
BP stable
cortisol low 1.3
pain controlled
Review of Systems:
no CP/SOB
Labs
-
Labs:
WBC 14.3 10^3/uL (4.8-10.8) H 09/25/23 08:07
RBC 3.92 10^6/uL (4.70-6.10) L 09/25/23 08:07
Hgb 12.7 g/dL (13.0-18.0) L 09/25/23 08:07
Hct 37.8 % (39.0-52.0) L 09/25/23 08:07
Plt Count 372 10^3/uL (130-400) D 09/25/23 08:07
Sodium 133 mmol/L (135-145) L 09/26/23 07:04
Potassium 3.7 mmol/L (3.5-5.1) 09/26/23 07:04
Chloride 95 mmol/L (98-107) L 09/26/23 07:04
Carbon Dioxide 32 mmol/L (22-30) H 09/26/23 07:04
BUN 22 mg/dl (9-20) H 09/26/23 07:04
Creatinine 1.1 mg/dL (0.7-1.3) 09/26/23 07:04
eGFR > 60.00 09/26/23 07:04
Glucose 98 mg/dl (70-99) 09/26/23 07:04
Calcium 8.9 mg/dl (8.4-10.2) 09/26/23 07:04
Albumin 4.7 g/dl (3.5-5.0) 09/22/23 17:12
Physical Exam
-
Vital Signs:
Vital Signs
Temp Pulse Resp BP Pulse Ox
98.2 F 70 18 120/62 97
09/26/23 08:00 09/26/23 08:04 09/26/23 08:00 09/26/23 08:04 09/26/23 08:00
Cardiovascular:: Regular rate and rhythm
Respiratory:: Bilateral: Coarse (decreased breath sounds bilaterally)
Lung Excursion:: Normal
Abdomen:: Nontender and Soft
Bowel Sounds:: Normal
Extremity Edema:: None: Bilateral:
Alaniz Catheter: No
[2023-09-26] MEDS: SODIUM CHLORIDE 1 GRAM PO (09:59)
[2023-09-26 12:50] VITALS: BP 134/73; BP_SYST 68
[2023-09-26 13:52] VITALS: BP 137/79
--- NOTE | 2023-09-26 14:28 | PTCARENOTE ---
Patient not able to get PET scan due to eating breakfast today. Patient has been rescheduled for Friday at 145pm. Patient understands that he needs to be at PET center by 130pm on Friday. Patient not able to get IR injections due to Plavix. Patient
states he would be agreeable to have injections as an outpatient after Plavix wash out period completed.
--- NOTE | 2023-09-26 14:53 | W.PN.HOSP.TC ---
Today's Communication/Plan
-
discharge today.
Outpatient IR follow-up for L3-L4 transforaminal injection
Outpatient PET/CT on Friday
Continue warm pack and muscle relaxants
Outpatient pulmonary follow-up
Outpatient nephrology follow-up
Outpatient oncology follow-up
Salt tabs have been started for discharge. Repeat BMP in 5 days for sodium check.
Assessment / Plan
Assessment / Plan
General: No Apparent Distress
HEENT: Normocephalic, Atraumatic and Moist Mucous Membranes. No JVD
Respiratory: CTA B/L, No rales or crackles or wheezes.
Cardiac: Regular Rhythm and S1/S2.
GI: Soft, NT, ND, BS+
Musculoskeletal: No Cyanosis , No Edema
Skin: Dry
Neuro: aao x3
Psych: normal affect
COPD
without evidence of acute bronchospasms, no indication for steroids, continue MDIs. Maintain SpO2 greater than 80 to 92%
Acute right-sided sciatica
seen previously by [facility] spine physicians in the last couple weeks, started on p.o. steroids without improvement. Fortunately without evidence of cauda equina
-MRI showing foraminal narrowing at l3-l4
- -Spine surgery evaluated no acute surgical interventions indicated
- -Spine surgery to consult IR for L3-L4 transforaminal injection
Euvolemic hyponatremia of 128. Nolvia 126 with a calculated serum osm of 271. Known history of lung CA s/p left lobectomy/chemo August 2021. Therefore, cannot rule out SIADH as a potential cause of this hyponatremia. Will preemptively fluid restrict to
1200cc
-Consult neph
- - Ordered tolvapatn for 09/22 and 09/23
- - low AM [place], stim test with mild improvement likely related to recent steroid use. I agree with nephrology no indication for hydrocortisone at this time.
-Will discuss with nephrology prior to discharge needs for every other day Lasix 20 mg
HyperK
- could be related to the tolvaptan
- - start low k diet
- - repeat bmp at 1800
- - consider lokelma
Pulmonary mass
Discussed with risk will be taken for PET/CT tomorrow
Anticipated Discharge: Today
Subjective/Interval History
-
Date of Service: September 26, 2023
Seen and examined. No new complaints. No acute overnight events.
Unable to PET/CT this a.m. as he already had eaten breakfast.
Unable to get L3/L4 foraminal narrowing block as he is still on Plavix
Objective Data
-
Labs:
Laboratory Results
09/26/23
07:04
Sodium 133 L
Potassium 3.7
Chloride 95 L
Carbon Dioxide 32 H
BUN 22 H
Creatinine 1.1
Glucose 98
Calcium 8.9
Vital Signs:
Vital Signs
Temp Pulse Resp BP Pulse Ox
98.4 F 68 18 134/73 95
09/26/23 12:50 09/26/23 12:50 09/26/23 12:50 09/26/23 12:50 09/26/23 13:44
I&O
09/25/23 09/26/23 09/27/23
06:59 06:59 06:59
Intake Total 720 / 720 1080 / 1080
Balance 720 / 720 1080 / 1080
--- NOTE | 2023-09-26 14:59 | W.DCSUMMARY ---
Discharge Summary
Discharge Data
Date of Admission: 09/22/23
Date of Discharge: 09/26/23
-
Pending Results: No
Hospital Course
83M COPD, lung cancer, hypertension, CAD, CVA, umbilical hernia repair, DVT history, history of syphilis, hiatal hernia, gastric ulcer, arthritis, PTSD, hard of hearing presented with severe right-sided sciatic pain radiating to anterior thigh just
above the knee which was refractory to 7-day course of steroids 50 mg and known history of herniated disc. MRI lumbar spine demonstrating right L3-L4 neural foraminal narrowing. Orthopedic�spine surgery evaluated no indication for a walker however
did recommend L3/L4 transforaminal injection by IR. Unfortunately, on Plavix and will need 5-day washout therefore this will be completed as outpatient. Was seen by physical therapy recommended home with home health aide.
Will need continued outpatient follow-up with orthopedic surgery and IR for transforaminal injection.
Additionally was noted to be hyponatremic. Nephrology was consulted provided 2 doses of tolvaptan and also found to have low cortisol of 1.3, cosyntropin stim test was completed which was low however given recent use of steroids this is likely
playing a part. Discharge home with salt tabs. Outpatient PCP follow-up. Consider outpatient nephrology follow-up with hyponatremia.
Has follow up vist on Friday the 28 of September for PET/CT.
CXR
IMPRESSION:
1. SEVERE BILATERAL UPPER LOBE EMPHYSEMA.
2. Chronic scarring and atelectasis in the lingula surrounding a 4.3 cm chronic cyst or bulla. A cystic lung cancer in the lingula is a less likely diagnostic possibility.
3. Severe calcific atherosclerotic plaque in the thoracic aorta.
[facility]od[facility] Advisory Board will be automatically informed of the findings.
IMPRESSION: There is no MR evidence for bony metastatic disease.
There are diffuse changes of degenerative disc disease. The greatest degree of neural foraminal narrowing appears to be on the right at L3-4. Please correlate with symptoms that would be referrable to the exiting right L3 nerve root.
See above narrative for detailed additional findings
Discharge Plan
-
Patient Disposition: Home with Home Care
Discharge Diagnosis/Procedures: COPD, lung cancer, hypertension, CAD, CVA, umbilical hernia repair, DVT history, history of syphilis, hiatal hernia, gastric ulcer, arthritis, PTSD, hard of hearing
hyponatremia, right-sided sciatica, right l3-l4 foraminal narrowing
Blood Work: bmp in 5days with pcp
Activity Restrictions/Additional Instructions:
Presented with severe right-sided sciatic pain radiating to anterior thigh just above the knee which was refractory to 7-day course of steroids 50 mg and known history of herniated disc. MRI lumbar spine demonstrating right L3-L4 neural foraminal
narrowing. Orthopedic�spine surgery evaluated no indication for a walker however did recommend L3/L4 transforaminal injection by IR. Unfortunately, on Plavix and will need 5-day washout therefore this will be completed as outpatient. Was seen by
physical therapy recommended home with home health aide.
Will need continued outpatient follow-up with orthopedic surgery and IR for transforaminal injection.
Additionally was noted to be hyponatremic. Nephrology was consulted provided 2 doses of tolvaptan and also found to have low cortisol of 1.3, cosyntropin stim test was completed which was low however given recent use of steroids this is likely
playing a part. Discharge home with salt tabs. Outpatient PCP follow-up. Consider outpatient nephrology follow-up with hyponatremia.
Has follow up vist on Friday the 28 of September for PET/CT.
Donot opperate heavy machinery when using narcotics +- muscle relaxers
CXR
IMPRESSION:
1. SEVERE BILATERAL UPPER LOBE EMPHYSEMA.
2. Chronic scarring and atelectasis in the lingula surrounding a 4.3 cm chronic cyst or bulla. A cystic lung cancer in the lingula is a less likely diagnostic possibility.
3. Severe calcific atherosclerotic plaque in the thoracic aorta.
[facility] Pulmonary Nodule Advisory Board will be automatically informed of the findings.
IMPRESSION: There is no MR evidence for bony metastatic disease.
There are diffuse changes of degenerative disc disease. The greatest degree of neural foraminal narrowing appears to be on the right at L3-4. Please correlate with symptoms that would be referrable to the exiting right L3 nerve root.
See above narrative for detailed additional findings
Referrals:
Bora Burton V. DO [Active] - in four to six weeks
Krzysztof Aquino DO [Active] - in two to four weeks
Gerry Covarrubias MD [Active] - in two to three weeks
Mallory North MD [Active] - in two to four weeks
Nam Peraza DO [Active] - in less than 1 week (interventional radiology for l3-l4 transforminal injection)
Glory Baires DO [Family Provider] - in less than 1 week
UNKNOWN - PT DOES,NOT KNOW [Unknown Provider] -
Prescriptions:
New
bisacodyl 10 mg Suppository
10 mg OR [id number] PRN (Reason: constipation) Qty: 5 0RF
sodium chloride 1,000 mg tablet,soluble
1,000 mg PO BID 14 Days Qty: 28 0RF
cyclobenzaprine 5 mg tablet
5 mg PO TID PRN (Reason: muscle spasm) 5 Days Qty: 10 0RF
Continued
clopidogrel 75 MG tablet
75 mg PO DAILY
metoprolol tartrate 25 MG tablet
25 mg PO BID
ranolazine 500 MG tablet extended release 12 hr
500 mg PO BID
amlodipine 5 MG tablet
5 mg PO DAILY
Praluent Pen 75 mg/mL Pen Injector
75 mg SC Q2W
hydrocodone-acetaminophen 5-300 mg tablet
0.5 - 1 tab PO DAILYPRN PRN (Reason: severe pain)
Discharge Orders:
Discharge Patient (As Directed); Ordered 09/26/23
Ordered By: Domenico Lopez
Discharge Date and Time
Print Language: OCCITAN
[2023-09-26 15:35] VITALS: BP 121/63
--- NOTE | 2023-09-26 16:52 | PTCARENOTE ---
Discharge instructions reviewed with patient and patient's sister at bedside. No questions. IV site removed. Transport called for discharge with sister picking up at [facility].
== END 2023-09-26 17:01 | disposition home or self-care (01) | DRG 552 ==
LOC: 4 EAST ACU 22:43
PROVIDERS: Clinical Nurse Specialist Family Health; Radiology Vascular & Interventional Radiology; Specialist; ADMITTING PHYSICIAN Hospitalist; ATTENDING PHYSICIAN Hospitalist; CONSULT PHYSICIAN Orthopaedic Surgery; EMERGENCY PHYSICIAN Student in an Organized Health Care Education/Training Program; FAMILY PHYSICIAN Family Medicine; OTHER PHYSICIAN Student in an Organized Health Care Education/Training Program
DX: M54.41 Lumbago with sciatica, right side (principal); E22.2 Syndrome of inappropriate secretion of antidiuretic hormone; E27.3 Drug-induced adrenocortical insufficiency; M48.061 Spinal stenosis, lumbar region without neurogenic claudication; E78.5 Hyperlipidemia, unspecified; M19.90 Unspecified osteoarthritis, unspecified site; I25.10 Atherosclerotic heart disease of native coronary artery without angina pectoris; F43.10 Post-traumatic stress disorder, unspecified; R91.8 Other nonspecific abnormal finding of lung field; J44.9 Chronic obstructive pulmonary disease, unspecified; F17.290 Nicotine dependence, other tobacco product, uncomplicated; T38.0X5A Adverse effect of glucocorticoids and synthetic analogues, initial encounter; Y92.9 Unspecified place or not applicable; K44.9 Diaphragmatic hernia without obstruction or gangrene; R44.1 Visual hallucinations; I25.2 Old myocardial infarction; Z96.652 Presence of left artificial knee joint; Z86.718 Personal history of other venous thrombosis and embolism; Z86.73 Personal history of transient ischemic attack (TIA), and cerebral infarction without residual deficits; Z87.11 Personal history of peptic ulcer disease; Z95.5 Presence of coronary angioplasty implant and graft; Z90.2 Acquired absence of lung [part of]; Z79.02 Long term (current) use of antithrombotics/antiplatelets; Z85.118 Personal history of other malignant neoplasm of bronchus and lung
CPT/HCPCS: 71046; 72158; 80048; 80053; 82533; 83935; 84443; 85025; 85610; 93005; 96361; 96374; 96375; 97162; 97166; 97530; 99285; 99406; A9575

== ENCOUNTER → 2024-04-13 11:03 | Outpatient (REF) | payer OTHER, SELFPAY | LOC: RAD 11:03 | PROVIDERS: ATTENDING PHYSICIAN Internal Medicine Hematology & Oncology; FAMILY PHYSICIAN Family Medicine | DX: R91.1 Solitary pulmonary nodule (principal); C34.12 Malignant neoplasm of upper lobe, left bronchus or lung; C34.02 Malignant neoplasm of left main bronchus; D70.1 Agranulocytosis secondary to cancer chemotherapy; Z51.11 Encounter for antineoplastic chemotherapy; E86.0 Dehydration | CPT/HCPCS: 71260; Q9967 ==